=== PATIENT | female | born 2000 ===

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

== ENCOUNTER 2025-03-11 13:30 | Inpatient (IN) | payer OTHER ==
[~2025-03-11] VITALS: Ht 162.6 cm; Wt 78.0 kg
[~2025-03-11 13:30] MED LIST: FE C PLUS TABL1 EACH PO; FERROUS SULFAT325 MG PO; PRENATAL 19 TA1 EACH PO
[2025-03-15] VITALS (12 sets, daily range): BP systolic 100–125; BP diastolic 56–72
[2025-03-15] MEDS ORDERED: AMPICILLIN SODIUM 2,000 MG VIAL IV NR (06:00)
[2025-03-15 07:14] LABS: PH,URINE 6.5 (5.0-8.0); URINE APPEARANCE Clear; URINE BILIRRUBIN Negative (NEGATIVE); URINE BLOOD Negative; URINE COLOR Yellow; URINE GLUCOSE Negative (NEGATIVE); URINE KETONE Negative (NEGATIVE); URINE LEUKOCYTE Trace; URINE NITRATE Negative; URINE PROTEIN Negative (NEGATIVE); URINE UROBILINOGEN 0.2 E.U./dl
[2025-03-15 07:15] LABS: HEMATOCRIT 31.9 % (36.0-45.00); HEMOGLOBIN 10.8 g/dL (12.0-15.00); MEAN CELL VOLUME 79.3 fL (80.00-100.00); MEAN CORPUSCULAR HEMOGLOBIN 26.9 pg (27.00-32.0); MEAN CORPUSCULAR HGB CONC 33.9 g/dl (32.0-36.0); PLATELET COUNT 187 K/uL (150-450); RED BLOOD COUNT 4.02 M/uL (4.00-6.00)
[2025-03-15 07:16] LABS: URINE BACTERIA 1462.4 uL (0.0-1933); URINE EPITHELIAL CELLS 95.9 uL (0.0-38.8); URINE RBC 2.3 uL (0.0-20.8); URINE WBC 20.4 uL (0.0-23.2)
[2025-03-15 07:17] LABS: RED CELL DISTRIBUTION WIDTH 21.5 % (11.5-14.5)
[2025-03-15 07:18] LABS: URINE CAST 0.29 uL (0.0-1.40)
[2025-03-15 07:43] LABS: INR 0.98; PARTIAL THROMBOPLASTIN TIME 28.3 SECONDS (22.0-34.0); PROTHROMBIN TIME 10.7 SECONDS (9.0-11.5)
[2025-03-15 08:05] LABS: ALBUMIN 2.7 gm/dL (3.4-5.0); BILIRUBIN TOTAL 0.49 mg/dL (0.3-1.2); CALCIUM 8.3 mg/dL (8.5-10.1); CREATININE SERUM 0.52 mg/dL (0.55-1.02); GFR 142.54; GLOBULINA 3.3 G/DL (2.4-3.5); POTASSIUM 3.85 mEq/L (3.5-5.1)
[2025-03-15] MEDS ORDERED: AMPICILLIN SODIUM 1,000 MG VIAL IV SCH (09:00)
[2025-03-15] MEDS ORDERED: MISOPROSTOL 25 MCG/4 ML GEL.W.APPL VAG ONE ×2 (09:15→13:30)
[2025-03-15] MEDS ORDERED: RINGERS SOLUTION,LACTATED 1,000 ML IV SCH (14:30)
[2025-03-15] MEDS ORDERED: OXYTOCIN 20 UNITS/500ML RL PIGGYBAG IV ONE (17:15)
[2025-03-15] MEDS ORDERED: OXYTOCIN 500 ML IV SCH (17:30)
[2025-03-15] MEDS ORDERED: MORPHINE SULFATE 4 MG/ML CARTRIDGE IV ONE (20:00)
[2025-03-15] MEDS ORDERED: CHLORHEXIDINE GLUCONATE 120 ML BOTTLE TOP ONE ×2 (21:13→23:00)
[2025-03-15] MEDS ORDERED: LIDOCAINE HCL 1% 10ML VIAL ONE (21:13)
[2025-03-15] MEDS ORDERED: ERYTHROMYCIN BASE OPHT 1GM EACH TUBE OP ONE ×2 (21:13→23:00)
[2025-03-15] MEDS ORDERED: OXYTOCIN 20 UNITS/1000ML RL PIGGYBAG IV ONE (21:13)
[2025-03-15] MEDS ORDERED: OXYTOCIN 1,000 ML IV SCH (23:00)
[2025-03-15] MEDS ORDERED: LIDOCAINE HCL 1% 10ML VIAL IJ ONE (23:00)
[2025-03-16] MEDS ORDERED: IBUprofen 600 MG TABLET PO SCH ×2 (00:15)
[2025-03-16 01:27] VITALS: BP 120/69
[2025-03-16 12:14] VITALS: BP 108/62
[2025-03-16 18:31] VITALS: BP 116/70
[2025-03-17 00:06] VITALS: BP 97/60
[2025-03-17 08:33] VITALS: BP 105/63
== END 2025-03-17 18:36 | disposition home or self-care (01) | DRG 807 ==
LOC: OB/GYN 03-15 05:57 → LDR 03-15 05:57 → OB/GYN 03-15 23:01
PROVIDERS: ADMIT Specialist; ATTEND Specialist
PROC: 10E0XZZ Delivery of Products of Conception, External Approach (ICD-10-PCS; principal; 2025-03-15)
PROC: 0W8NXZZ Division of Female Perineum, External Approach (ICD-10-PCS; 2025-03-15)
PROC: 4A1HXCZ Monitoring of Products of Conception, Cardiac Rate, External Approach (ICD-10-PCS; 2025-03-15)
PROC: 3E033VJ Introduction of Other Hormone into Peripheral Vein, Percutaneous Approach (ICD-10-PCS; 2025-03-15)
PROC: 3E0P7VZ Introduction of Hormone into Female Reproductive, Via Natural or Artificial Opening (ICD-10-PCS; 2025-03-15)
DX: O99.824 Streptococcus B carrier state complicating childbirth (principal); O69.81X0 Labor and delivery complicated by cord around neck, without compression, not applicable or unspecified; Z37.0 Single live birth; Z3A.39 39 weeks gestation of pregnancy

== ENCOUNTER 2025-05-03 11:41 | Day surgery (SDC) | payer OTHER ==
[2025-05-03] MEDS ORDERED: CEFAZOLIN SODIUM 1,000 MG VIAL ONE (13:34)
[2025-05-03] MEDS ORDERED: BUPIVACAINE HCL/Mpf 0.5% 10ML VIAL ONE (18:40)
[2025-05-03] MEDS ORDERED: POVIDONE-IODINE 118 ML BOTT TOP ONE (19:53)
[2025-05-03] MEDS ORDERED: SUGAMMADEX SODIUM 200 MG/2 ML VIAL IV ONE (20:49)
== END 2025-05-03 23:05 | disposition home or self-care (01) ==
LOC: CIR.AMB 11:41
PROVIDERS: ATTEND Specialist
DX: Z30.2 Encounter for sterilization (principal)